=== PATIENT | male | born 1995 | race Caucasian/White ===

== ENCOUNTER → 2019-01-21 15:35 | Outpatient (CLI) | payer OTHER, SELFPAY ==
--- NOTE | 2019-01-21 | DI.MRI.S_ITS ---
PROCEDURE: MR KNEE RT WO CON INDICATIONS: Pain in right knee TECHNIQUE: Noncontrast sagittal PD fast spin echo and T2 fast spin echo with fat saturation, sagittal 3-D FLASH with fat saturation; coronal T1 spin echo and PD fast spin echo with fat saturation, and axial PD fast spin echo with fat saturation through the knee. COMPARISON: [facility], CR, XR KNEE RT 3V, 01/08/2019, 13:48. FINDINGS: Image quality: Excellent. Menisci: The medial and lateral menisci demonstrate normal morphology and internal signal. The meniscal root ligaments appear intact. Cruciate ligaments: Status post anterior cruciate ligament reconstruction. The graft appears intact. The posterior cruciate ligament appears intact. Medial structures: The medial collateral ligament appears intact. The posterior oblique ligament, semimembranosus tendon insertions, oblique popliteal ligament, and meniscocapsular junction appear intact. Visualized portions of the pes anserinus tendons appear normal. No abnormal bursal fluid. Lateral structures: The lateral collateral ligament, long and short heads of the biceps femoris tendon appear intact. The popliteus tendon appears normal; the popliteofibular ligament appears intact. The posterosuperior and anteroinferior popliteomeniscal fascicles appear intact. The arcuate and fabellofibular ligaments appear intact, on either side of the lateral inferior geniculate artery. Iliotibial band appears normal. Anterior structures: The quadriceps and patellar tendons appear intact, save for post surgical changes related to ACL reconstruction. Patellar alignment is normal. No femoral trochlear dysplasia or ventral trochlear prominence. No edema in the infrapatellar fat pad. Bones and cartilage: No focal marrow contusion or discrete low signal fracture line. Within the medial compartment, femoral and tibial articular cartilage appears preserved Within the lateral compartment, mild surface fraying and partial-thickness loss diffusely of the femoral cartilage. The tibial cartilage appears grossly intact Within the patellofemoral compartment, mild to surface fraying of the patellar articular cartilage. The femoral trochlear cartilage appears grossly intact. Joint space: No pathologic joint effusion. No Simon's cyst. No evidence of intra-articular loose body seen. IMPRESSION: Status post reconstruction of the ACL. The graft appears intact. Mild joint degeneration. Elsewhere, no internal derangement. Dictated by: Jemal Maya M.D. on 01/21/2019 at 16:31 Approved by: Jemal Maya M.D. on 01/21/2019 at 16:37
== END ==
PROVIDERS: Visit Provider Family Medicine
DX: M25.561 Pain in right knee (principal); M17.11 Unilateral primary osteoarthritis, right knee
CPT/HCPCS: 73721